=== PATIENT | female | born 1980 | race Caucasian/White ===

== ENCOUNTER 2017-09-06 11:37 | Emergency (ER) | payer OTHER ==
[~2017-09-06] VITALS: Ht 160 cm; Wt 70.3 kg
[~2017-09-06 11:37] MED LIST: ESCITALOPRAM20 MG PO; LIORESAL 10MG T10 MG PO; MOTRIN 600 MG600 MG PO; ULTRAM(MONOGRAP50 MG PO; XANAX0.5 MG PO; ZOFRAN4 M1 SL
[2017-09-06 13:17] LABS: ABSOLUTE BASOPHIL COUNT 0 /CUMM (0.0-0.2); ABSOLUTE EOSINOPHIL COUNT 0 /CUMM (0.0-0.7); ABSOLUTE LYMPH COUNT 3.1 /CUMM (1.2-3.4); ABSOLUTE MONOCYTE COUNT 0.6 /CUMM (0.10-0.60); BASOPHIL % 0.5 % (0.0-2.0); EOSINOPHIL % 0.1 % (0-5); GRANULOCYTE % 61.6 % (42.2-75.2); HEMATOCRIT 41.7 % (37-47); MEAN CORPUSCULAR HGB 32.6 PG (27.0-31.0); MEAN CORPUSCULAR HGB CONC 33.7 G/DL (33.0-37.0); MEAN CORPUSCULAR VOLUME 96.6 FL (81.0-99.0); MEAN PLATELET VOLUME 9.1 FL (7.4-10.4); PLATELET COUNT 240 /CUMM (130-400); RBC DISTRIBUTION WIDTH 13.3 % (11.5-14.5); RED BLOOD CELL CT 4.32 /CUMM (4.20-5.40); WHITE BLOOD CELL COUNT 9.7 /CUMM (4.8-10.8)
[2017-09-06 14:15] VITALS: BP 100/68
--- NOTE | 2017-09-06 14:42 | ED GI/GU/ABDOMINAL COMPLAINT ---
History of Present Illness General Chief Complaint: Abdominal Pain/Flank Pain Stated Complaint: KIDNEY PAIN +SEVERE BACK PAIN Source: patient Exam Limitations: no limitations Vital Signs & Intake/Output Vital Signs & Intake/Output Vital Signs Date Time Temp Pulse Resp B/P B/P Pulse O2 O2 Flow FiO2 Mean Ox Delivery Rate 09/06 1415 98.4 60 18 100/68 99 09/06 1150 97.0 91 20 112/80 99 Room Air Allergies Coded Allergies: MDX - Contrast Media, Iodine Relate (Contrast Media, Iodine Related) (UNKNOWN ) MDX - SULFA (sulfonamide) (SULFA (SULFONAMIDE)) (UNKNOWN 05/11/15) Triage Note: LEFT FLANK PAIN AND UTI SYMPTOMS 2 WEEKS AGO. PMD CALLED IN CEFTIN WHICH DIDN'T WORK THEN MACROBID. PT FINISHED THE COURSE 2 DAYS AGO AND STILL HAS FREQUENT URINATION AND LEFT FLANK PAIN. 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 Triage Nurses Notes Reviewed? yes ? n Is pt currently ? No Onset: Abrupt Duration: day(s): Timing: recent history Quality/Severity: moderate Location: left flank Radiation: LLQ, LUQ Activities at Onset: none HPI: 37-year-old female that was on a course of 2 different antibiotics including a cephalosporin as well as Macrobid comes into the emergency room with persistent increased frequency and burning with urination as well as some associated left flank pain and left lower abdominal pain has been going on now. Denies any fever chills vomiting. Nothing seems to make the symptoms better. She comes in for further evaluation. 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 Denies any other abdominal surgeries. (Agapito Cunha) Reconcile Medications Alprazolam (Xanax) 0.5 MG TAB 1.5 TAB PO DAILY ANXIETY (Reported) Baclofen (Lioresal) 10 MG TAB 1 TAB PO TIDPRN PRN muscle strain Ciprofloxacin HCl (Cipro) 500 MG TABLET 1 TAB PO BID PYELO/UTI Escitalopram Oxalate 20 MG TAB 1 TAB PO DAILY MENTAL HEALTH (Reported) Escitalopram Oxalate (Lexapro) 5 MG TABLET 1 TAB PO DAILY DEPRESSION ( Reported) Ibuprofen 800 MG TABLET 1 TAB PO TID PAIN Ibuprofen (Motrin 600 MG Tab) 600 MG TAB 1 TAB PO Q6P PRN PAIN Ondansetron (Zofran Odt) 4 MG TAB.RAPDIS 1 TAB SL TID NAUSEA Ondansetron (Zofran Odt) 4 MG ODT 1 ODT SL Q6P PRN NAUSEA Oxycodone HCl/Acetaminophen (Percocet 5-325 MG Tablet) 5 MG-325 MG TABLET 1-2 TAB PO Q6P PRN PAIN Phenazopyridine HCl (Pyridium) 200 MG TABLET 1 TAB PO TID UTI Tramadol HCl (Ultram) 50 MG TAB 1 TAB PO Q6 PRN severe pain (Nelson GARCIA,Nikita) Past History Travel History Traveled to [place] past 21 day No Medical History Any Pertinent Medical History? see below for history Neurological: NONE EENT: NONE Cardiovascular: NONE Respiratory: NONE Gastrointestinal: NONE Hepatic: NONE Renal: nephrectomy Musculoskeletal: herniated cervical discs Psychiatric: NONE Endocrine: NONE Blood Disorders: NONE Cancer(s): NONE Surgical History Surgical History: non-contributory Psychosocial History What is your primary language Khmer Tobacco Use: Current Daily Use Daily Tobacco Use Amount/Type: => 5 Cigarettes daily ETOH Use: occasional use Illicit Drug Use: denies illicit drug use Family History Hx Contributory? No (Agapito Cunha) Review of Systems Review of Systems Constitutional: Reports: no symptoms. EENTM: Reports: no symptoms. Respiratory: Reports: no symptoms. Cardiovascular: Reports: no symptoms. GI: Reports: see HPI. Genitourinary: Reports: no symptoms. Musculoskeletal: Reports: see HPI. Skin: Reports: no symptoms. Neurological/Psychological: Reports: no symptoms. Hematologic/Endocrine: Reports: no symptoms. Immunologic/Allergic: Reports: no symptoms. All Other Systems: Reviewed and Negative (Agapito Cunha) Physical Exam Physical Exam General Appearance: well developed/nourished, no apparent distress, alert, awake Head: atraumatic Eyes: Bilateral: normal appearance. Ears, Nose, Throat, Mouth: hearing grossly normal, moist mucous membrane Neck: normal inspection Respiratory: normal breath sounds, no respiratory distress Cardiovascular: regular rate/rhythm Gastrointestinal: soft, tenderness (llq) Back: CVA tenderness (L) Extremities: normal range of motion Neurologic/Psych: awake, alert, oriented x 3 Skin: intact, normal color Core Measures ACS in differential dx? No Sepsis Present: No Sepsis Focused Exam Completed? No (Agapito Cunha) Progress Differential Diagnosis: diverticulitis, ectopic , ischemic bowel, kidney stone, ovarian cyst, ovarian torsion, UTI/pyelo Plan of Care: Orders Procedure Date/time Status Add-on Test (ER Only) 09/06 154 Active Add-on Test (ER Only) 09/06 1420 Active LACTIC ACID 09/06 1247 Complete COMPREHENSIVE METABOLIC PANEL 09/06 1247 Complete CBC WITHOUT DIFFERENTIAL 09/06 1247 Complete CULTURE,URINE 09/06 121 Active URINE 09/06 121 Complete URINALYSIS 09/06 1152 Complete Laboratory Tests 09/06/17 1547: Lactic Acid Cancelled 09/06/17 1301: Anion Gap 11, Estimated GFR > 60, BUN/Creatinine Ratio 10.0, Glucose 69, Lactic Acid 0.7, Calcium 9.5, Total Bilirubin 0.4, AST 14, ALT 19, Alkaline Phosphatase 72, Total Protein 7.4, Albumin 4.3, Globulin 3.1, Albumin/Globulin Ratio 1.4, CBC w Diff NO MAN DIFF REQ, RBC 4.32, MCV 96.6, MCH 32.6 H, MCHC 33.7, RDW 13.3 , MPV 9.1, Gran % 61.6, Lymphocytes % 31.6, Monocytes % 6.2, Eosinophils % 0.1, Basophils % 0.5, Absolute Granulocytes 6.0, Absolute Lymphocytes 3.1, Absolute Monocytes 0.6, Absolute Eosinophils 0, Absolute Basophils 0 09/06/17 121: Urine Test NEGATIVE 09/06/17 1211: Urine Color YEL, Urine Clarity HAZY H, Urine pH 6.5, Ur Specific [place] <= 1.005, Urine Protein NEG, Urine Ketones NEG, Urine Nitrite NEG, Urine Bilirubin NEG, Urine Urobilinogen 0.2, Ur Leukocyte Esterase LARGE H, Ur Microscopic SEDIMENT EXAMINED, Urine RBC 1-3, Urine WBC 25-50 H, Ur Epithelial Cells RARE, Urine Bacteria MOD H, Urine Hemoglobin SMALL H, Urine Glucose NEG Microbiology 09/06 1210 URINE ROUT: Urine Culture - RECD Diagnostic Imaging: Viewed by Me: CT Scan. Discussed w/RAD: CT Scan. Radiology Impression: PATIENT: ALLIE JOHNSON PRESENT AGE: 37 PATIENT ACCOUNT NO: [id number] : 79 LOCATION: [facility] ORDERING PHYSICIAN: Agapito MONTANEZ SERVICE DATE: 09/06/171442 EXAM TYPE : CAT - CT ABD & PELVIS W/O IV CONTRAS EXAMINATION: CT ABDOMEN AND PELVIS WITHOUT CONTRAST CLINICAL INFORMATION: Left flank pain. COMPARISON: November 2005. TECHNIQUE: Contiguous axial thin section helical images of the abdomen and pelvis were performed without oral or IV contrast. The data set was reformatted in the coronal and sagittal planes and reviewed on an independent workstation. DLP: 296 mGy-cm. FINDINGS: The visualized lung bases are clear. The visualized portions of the heart are unremarkable. The liver is of normal size and attenuation without focal lesions nor intrahepatic biliary ductal dilation. A normal gallbladder is identified. There is no wall thickening or discernible pericholecystic fluid. The spleen, pancreas, adrenal glands are unremarkable. A normal left kidney is present without hydronephrosis or nephrolithiasis. The right kidney is absent. Several surgical clips are present within the right renal fossa. There is no abdominal free fluid. There is neither mesenteric nor retroperitoneal lymphadenopathy. Normal unopacified loops of small and large bowel are identified. A normal appendix is identified. There is no pelvic free fluid. The urinary bladder is unremarkable. There is neither pelvic nor inguinal lymphadenopathy. Bone windows: Neither sclerotic nor lytic bone lesions are identified. IMPRESSION: No evidence for acute abdominal or pelvic inflammatory or infectious processes. Solitary left kidney without hydronephrosis or nephrolithiasis. DICTATED BY: Sal Perez MD DATE/TIME DICTATED:09/06/171527 JD EDWARDS CONSULTANT:BOLA DATE/TIME TRANSCRIBED:09/06/171527 CONFIDENTIAL, DO NOT COPY WITHOUT APPROPRIATE AUTHORIZATION. <Electronically signed in Other Vendor System> SIGNED BY: Sal Perez MD 09/06/17 2906 Initial ED EKG: none (Darien MONTANEZ,Agapito) Departure Departure Disposition: HOME OR SELF CARE Condition: Stable Clinical Impression Primary Impression: UTI (urinary tract infection) Secondary Impressions: Back pain Referrals: Deena Barber MD (PCP/Family) Additional Instructions: Take Percocet, ibuprofen, ciprofloxacin as prescribed. Follow-up with your primary care doctor. Follow-up with urine culture in the next 48 hours. Return if any other concerns worsening symptoms. Please go over all results of today's visit with your primary care doctor. Contact your primary care doctor to let them know you were here in the emergency room. There may be nonspecific findings which may not be related to your visit today here in the emergency room but may require further evaluation and chronic monitoring by your primary care doctor. If you had a laceration today the chance of foreign body always remains. You should follow-up with your primary care doctor for recheck in 3-5 days for a wound check. If you had an x-ray done there is a chance that a fracture could have been missed on initial read and you should follow-up with your primary care doctor for repeat x-rays if symptoms persist. If your blood pressure was elevated here in the emergency room please have rechecked by shaina primary care doctor within the next 48. If you were prescribed a narcotic here in the emergency room or any type of controlled substances you're not allowed to drive while taking this medication or operate any type of heavy machinery. Narcotics can make you feel lightheaded dizziness nausea and can cause constipation. You may need to poultry picker a stool softener. Thank you for choosing [facility] emergency room. Please return to the emergency room immediately if you have any other concerns worsening of symptoms. Departure Forms: Customer Survey General Discharge Information Prescriptions: Current Visit Scripts Oxycodone HCl/Acetaminophen (Percocet 5-325 MG Tablet) 1-2 TAB PO Q6P PRN PAIN #10 TAB Ibuprofen 1 TAB PO TID #30 TAB Phenazopyridine HCl (Pyridium) 1 TAB PO TID #9 TAB Ciprofloxacin HCl (Cipro) 1 TAB PO BID #14 TAB Ondansetron (Zofran Odt) 1 TAB SL TID #10 TAB Comments 09/06/2017 4:04:55 PM Patient clinically looks well. Patient is no apparent distress. Patient is nontoxic-appearing. Patient resting comfortably on stretcher upon reevaluation. Patient was sleeping peacefully. She does not appear to be in any type of distress. She's been on 2 antibiotics and still having urinary tract symptoms. Patient started on ciprofloxacin. Referred to her primary care doctor. Return if any other concerns worsening symptoms. (Agapito Cunha) PA/LEATHERSMITH Co-Sign Statement Statement: ED Attending supervision documentation- [] I saw and evaluated the patient. I have also reviewed all the pertinent lab results and diagnostic results. I agree with the findings and the plan of care as documented in the PA's/LEATHERSMITH's documentation. [x] I have reviewed the ED Record and agree with the PA's/LEATHERSMITH's documentation. [] Additions or exceptions (if any) to the PAs/LEATHERSMITH's note and plan are summarized below: [] (Nikita Damon DO)
--- NOTE | 2017-09-06 15:37 | CT SCAN REPORT ---
EXAMINATION: CT ABDOMEN AND PELVIS WITHOUT CONTRAST CLINICAL INFORMATION: Left flank pain. COMPARISON: November 2005. TECHNIQUE: Contiguous axial thin section helical images of the abdomen and pelvis were performed without oral or IV contrast. The data set was reformatted in the coronal and sagittal planes and reviewed on an independent workstation. DLP: 296 mGy-cm. FINDINGS: The visualized lung bases are clear. The visualized portions of the heart are unremarkable. The liver is of normal size and attenuation without focal lesions nor intrahepatic biliary ductal dilation. A normal gallbladder is identified. There is no wall thickening or discernible pericholecystic fluid. The spleen, pancreas, adrenal glands are unremarkable. A normal left kidney is present without hydronephrosis or nephrolithiasis. The right kidney is absent. Several surgical clips are present within the right renal fossa. There is no abdominal free fluid. There is neither mesenteric nor retroperitoneal lymphadenopathy. Normal unopacified loops of small and large bowel are identified. A normal appendix is identified. There is no pelvic free fluid. The urinary bladder is unremarkable. There is neither pelvic nor inguinal lymphadenopathy. Bone windows: Neither sclerotic nor lytic bone lesions are identified. IMPRESSION: No evidence for acute abdominal or pelvic inflammatory or infectious processes. Solitary left kidney without hydronephrosis or nephrolithiasis.
[2017-09-06] MEDS ORDERED: IBUPROFEN800 M1 PO (15:55)
[2017-09-06] MEDS ORDERED: CIPRO500 M1 PO (15:55)
[2017-09-06] MEDS ORDERED: PERCOCET 5-3251 EACH PO (15:55)
[2017-09-06] MEDS ORDERED: ZOFRAN ODT4 M1 SL (15:55)
[2017-09-06] MEDS ORDERED: PYRIDIUM200 M1 PO (15:55)
[2017-09-06] MEDS ORDERED: LEXAPRO5 M1 PO (16:14)
== END 2017-09-06 16:15 ==
LOC: ERH 11:37
PROVIDERS: Physician Assistant Medical
DX: N39.0 Urinary tract infection, site not specified (principal)
CPT/HCPCS: 74176; 81001; 81025; 87086